=== PATIENT | female | born 1940 | race Caucasian/White ===

== ENCOUNTER 2018-11-04 09:45 | Outpatient (CLI) | payer MEDICARE ==
--- NOTE | 2018-11-04 11:17 | Mammography Report ---
Screening mammogram: Routine views demonstrates a fatty-replaced breast pattern with extensive vascular calcifications. When compared to prior exam in February 2015 there no significant changes. No suspicious findings. CAD used. Impression: Stable exam. Recommendation: Annual mammogram followup. BI-RADS CATEGORY: 1 = Negative ACR BI-RADS MAMMOGRAPHIC CODES: 0 = Needs additional imaging evaluation; 1 = Negative; 2 = Benign; 3 = Probably benign; 4 = Suspicious; 5 = Malignant; 6 = Known biopsy-proven malignancy COMMENT: 1. Dense breast tissue, i.e., adenosis, fibrocystic changes, etc., may obscure an underlying neoplasm. 2. Approximately 10% of cancers are not detected with mammography. 3. A negative mammography report should not delay biopsy if a clinically suspicious mass is present.
== END 2018-11-04 09:46 | disposition home or self-care (01) ==
LOC: MAMMO 09:45
PROVIDERS: ATTEND Internal Medicine
DX: Z12.31 Encounter for screening mammogram for malignant neoplasm of breast (principal); I10 Essential (primary) hypertension
CPT/HCPCS: 77067

== ENCOUNTER 2021-02-03 10:52 | Outpatient (CLI) | payer MEDICARE ==
[2021-02-03 11:43] LABS: Chol/HDL Ratio 2.98 %
--- NOTE | 2021-02-03 12:38 | XRay Report ---
LEFT HIP 2 VIEWS INDICATION / CLINICAL INFORMATION: PAIN IN LEFT HIP COMPARISON: None available. FINDINGS: BONES and JOINT(S): No acute fracture or subluxation. 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 SOFT TISSUES: No significant abnormality. ADDITIONAL FINDINGS: None. IMPRESSION: 1. No acute findings. 2. Degenerative changes as above. Signer Name: Daron Mcpherson MD Signed: 02/03/2021 12:34 PM Workstation Name: [id number] [id number]
[2021-02-06 13:02] LABS: Vitamin D, 25-OH, D2 25 ng/mL
== END 2021-02-03 10:53 | disposition home or self-care (01) ==
LOC: XRAY 10:52
PROVIDERS: ATTEND Internal Medicine
DX: M16.12 Unilateral primary osteoarthritis, left hip (principal); E03.9 Hypothyroidism, unspecified; R73.03 Prediabetes; E78.2 Mixed hyperlipidemia; E55.9 Vitamin D deficiency, unspecified
CPT/HCPCS: 36415; 80061; 82306; 83036; 84443